=== PATIENT | female | born 1985 | race Caucasian/White ===

== ENCOUNTER 2016-12-09 13:39 | Emergency (ER) | payer SELFPAY ==
[~2016-12-09] VITALS: Wt 8.0 kg
--- NOTE | 2016-12-09 15:50 | RADRPT ---
PROCEDURE: XR Knees. CLINICAL INDICATION: Trauma. Bilateral knee pain. TECHNIQUE: Total of six views. Frontal, oblique, and lateral views of both knees. COMPARISON: No prior study is available for comparison. FINDINGS: There is no fracture or dislocation. The soft tissues are normal. Articular surfaces are intact. There is no lytic or blastic lesion. There is no radiopaque foreign body. IMPRESSION: 1. Unremarkable images of both knees. RPTAT: QQ .Chandan Han MD, MD Date Time Electronically viewed and signed by .Chandan Han MD, MD on 12/09/2016 15:49 .R/
[2016-12-09] MEDS ORDERED: NAPR-260 PO (15:56)
--- NOTE | 2016-12-09 16:13 | ERD ---
ER Documentation Chief Complaint Date/Time DATE: 12/09/16 TIME: 16:09 Chief Complaint BILATERAL KNEE X 5 DAYS HPI Patient is a 31-year-old female who presents to the ED with bilateral knee pain for 5 days after sustaining an injury. She states that she was running and fell into a hole, she did not land on her knees but there is a lot of pressure applied to her bilateral knees. She states that she has pain on the anterior and lateral aspects of her knees. Denies pain above or below her knees. Denies pain in her ankles. She states she is able to walk but it hurts when she bends her knees. Denies hip pain. Denies fever or chills. No other complaints. ROS All systems reviewed and are negative except as per history of present illness. Medications Home Meds Active Scripts Naproxen* (Naprosyn*) 500 Mg Tablet, 500 MG PO BID Y for PAIN AND/OR INFLAMMATION, #30 TAB Prov:DEREJE GONZALEZ PA-C 12/09/16 Allergies Allergies: Coded Allergies: No Known Drug Allergy (Verified Allergy, Unknown, 09/27/10) PMhx/Soc History of Surgery: No Anesthesia Reaction: No Hx Neurological Disorder: No Hx Respiratory Disorders: No Hx Cardiac Disorders: No Hx Psychiatric Problems: No Hx Miscellaneous Medical Probl: No Hx Alcohol Use: No Hx Substance Use: No Hx Tobacco Use: No Physical Exam Vitals Vital Signs Date Time Temp Pulse Resp B/P Pulse Ox O2 Delivery O2 Flow Rate FiO2 12/09/16 13:44 98.6 69 18 141/71 99 Physical Exam GENERAL: Well-developed, well-nourished female. Appears in no acute distress. LUNG: Clear to auscultation bilaterally. No rhonchi, wheezing, rales or coarse breath sounds. HEART: Regular rate and rhythm. No murmurs, rubs or gallops. Extremities: Equal pulses bilaterally. No peripheral clubbing, cyanosis or edema. No unilateral leg swelling. Nontender to bilateral knees. No swelling or ecchymosis, no step-offs or deformities. No open wounds or laceration. Range of motion intact. Negative Lockman test. Positive Laura's on the left. No pain above or below knee. NEUROLOGIC: Alert and oriented. Moving all four extremities. 5/5 strength in all extremities. Normal speech. Steady gait. SKIN: Normal color. Warm and dry. No rashes or lesions. Capillary refill < 2 seconds Procedures/MDM ER COURSE: I kept the patient and/or family informed of laboratory and diagnostic imaging results throughout the emergency room course. IMAGING STUDIES [place] [id number] Radiology Main Line: [phone] DIAGNOSTIC IMAGING REPORT Patient: DIONTE MCCLOUD : 1985 Age: 31 Sex: F MR #: [id number] DOS: 12/09/16 1509 Ordering MD: DEREJE GONZALEZ PA-C Location: [facility] Room/Bed: PROCEDURE: XR Knees. CLINICAL INDICATION: Trauma. Bilateral knee pain. TECHNIQUE: Total of six views. Frontal, oblique, and lateral views of both knees. COMPARISON: No prior study is available for comparison. FINDINGS: There is no fracture or dislocation. The soft tissues are normal. Articular surfaces are intact. There is no lytic or blastic lesion. There is no radiopaque foreign body. IMPRESSION: 1. Unremarkable images of both knees. RPTAT: QQ .Chandan Han MD, MD Date Time Electronically viewed and signed by .Chandan Han MD, on 12/09/2016 15:49 .R/ CC: DEREJE GONZALEZ PA-C MEDICAL DECISION MAKING: This is a 31-year-old female who presents with bilateral knee pain 5 days after sustaining an injury. Vital signs were reviewed. Patient is afebrile. Patient is not hypoxic. Patient is not toxic or ill-appearing. Patient has knee pain of unknown etiology. X-rays read by radiologist is unremarkable. Low suspicion for dislocation, fracture, septic joint, compartment syndrome, osteomyelitis, avascular necrosis, DVT, Achilles tendon rupture, cellulitis. At this time, unable to rule out any tendon and ligament injuries. DISCHARGE: At this time, patient is stable for discharge and outpatient management with no new complaints during the ER course. Patient was sent home with [facility] and copy of x-ray reports. A note for work was also given.. I advised patient to follow-up with orthopedics for further imaging studies. Patient will be discharged home with instructions to recheck for new or worsening symptoms such as fever, nausea, weakness, LOC and to follow up with primary care in the next 1 -2 days. Patient was advised to return to the ER for any new or worsening symptoms. Plan was discussed and patient and/or family understands and agrees. Home instructions were given. Departure Diagnosis: Primary Impression: Knee pain Laterality: bilateral Chronicity: acute Qualified Code: M25.561 - Acute pain of both knees Condition: Stable Patient Instructions: Knee Pain, Uncertain Cause Additional Instructions: Call your primary care doctor TOMORROW for an appointment during the next 1-2 days.See the doctor sooner or return here if your condition worsens before your appointment time. DEREJE GONZALEZ PA-C Dec 09, 2016 16:13
== END 2016-12-09 16:15 | disposition home or self-care (01) ==
LOC: FTE 13:39
DX: S89.91XA Unspecified injury of right lower leg, initial encounter (principal); S89.92XA Unspecified injury of left lower leg, initial encounter; W18.39XA Other fall on same level, initial encounter

== ENCOUNTER 2017-04-28 09:20 | Emergency (ER) | payer SELFPAY ==
[~2017-04-28] VITALS: Ht 162.6 cm; Wt 82.0 kg
[~2017-04-28 09:20] MED LIST: NAPR-260 PO
[2017-04-28 09:23] VITALS: Ht 162.6 cm; Wt 82.0 kg
[2017-04-28 10:08] LABS: BASOPHILS % 0.4 % (0.0-2.0); EOSINOPHILS # 0.1 10^3/ul (0.0-0.5); EOSINOPHILS % 0.8 % (0.0-7.0); HEMOGLOBIN 13.1 g/dl (12.0-16.0); LYMPHOCYTES # 1.9 10^3/ul (0.8-2.9); LYMPHOCYTES % 25.9 % (15.0-51.0); MEAN CORPUSCULAR HEMOGLOBIN 28.9 pg (29.0-33.0); MEAN CORPUSCULAR HGB CONC 32.8 g/dl (32.0-37.0); MEAN CORPUSCULAR VOLUME 88.3 fl (82.0-101.0); MEAN PLATELET VOLUME 11.7 fl (7.4-10.4); MONOCYTE # 0.6 10^3/ul (0.3-0.9); MONOCYTES % 8.7 % (0.0-11.0); NEUTROPHILS % 63.9 % (39.0-77.0); PLATELET COUNT 177 10^3/UL (140-415); RED BLOOD COUNT 4.53 10^6/ul (4.20-5.40); RED CELL DISTRIBUTION WIDTH 12.3 % (11.5-14.5); WHITE BLOOD COUNT 7.2 10^3/ul (4.8-10.8)
[2017-04-28 10:11] LABS: ADD UMIC YES; UR ASCORBIC ACID NEGATIVE (NEGATIVE); UR BILIRUBIN (Dip) NEGATIVE (NEGATIVE); UR BLOOD (Dip) 1+ mg/dL (NEGATIVE); UR CLARITY CLEAR (CLEAR); UR COLOR STRAW (YELLOW); UR GLUCOSE (Dip) NEGATIVE (NEGATIVE); UR KETONES (Dip) NEGATIVE (NEGATIVE); UR LEUKOCYTE ESTERASE (Dip) NEGATIVE Leu/ul (NEGATIVE); UR NITRITE (Dip) NEGATIVE (NEGATIVE); UR RBC 7 /HPF (0-5); UR SPECIFIC GRAVITY (Dip) 1.004 (1.003-1.030); UR TOTAL PROTEIN (Dip) NEGATIVE (NEGATIVE); UR UROBILINOGEN (Dip) NEGATIVE (NEGATIVE)
--- NOTE | 2017-04-28 11:11 | RADRPT ---
PROCEDURE: US OB. CLINICAL INDICATION: Vaginal bleeding TECHNIQUE: Transabdominal and transvaginal views of the pelvis are available for review. COMPARISON: No prior studies are available for comparison. FINDINGS: There is a single intrauterine gestation with the crown-rump length measuring 0.3 cm and the gestati onal sac measuring 1.7 cm, corresponding to a gestational age of 6 weeks and 1 day. The heart tones could not be measured at this time. The ovaries are normal in size and echogenicity. Normal Doppler flow is identified in both ovaries. The right ovary measures 2.5 x 1.3 x 1.6 cm. The left ovary measures 3.4 x 2.4 x 2.4 cm. There is a hemorrhagic cyst in the left ovary. There is no free fluid. RPTAT: AA IMPRESSION: Single intrauterine with an estimated gestational age of 6 weeks and 1 day, based on ultra sound measurements. LISA based on ultrasound measurements is 12/21/2017. heart thickening is seen, however unable to measure the heart rate. Close follow-up is recommended. .Alex Chavis MD, MD Date Time Electronically viewed and signed by .Alex Chavis MD, on 04/28/2017 11:11 .S/
--- NOTE | 2017-04-28 11:31 | ERD ---
ER Documentation Chief Complaint Date/Time DATE: 04/28/17 TIME: 11:29 Chief Complaint vag bleed x 1 day , 6 weesk preg , lmp 03/15/17 HPI 32-year-old female who is with 2 miscarriages comes in approximately 6 weeks with last menstrual period on March 15 with vaginal spotting for the last 2 days. She reports very slight amount of pink vaginal spotting that occurred once yesterday morning as well as today. She has not had any bleeding furthermore, or pelvic pain. She has not had any fevers, chills, dizziness. ROS All systems reviewed and are negative except as per history of present illness. Medications Home Meds Active Scripts Naproxen* (Naprosyn*) 500 Mg Tablet, 500 MG PO BID Y for PAIN AND/OR INFLAMMATION, #30 TAB Prov:DEREJE GONZALEZ PA-C 12/09/16 Allergies Allergies: Coded Allergies: No Known Drug Allergy (Verified Allergy, Unknown, 09/27/10) PMhx/Soc History of Surgery: No Anesthesia Reaction: No Hx Neurological Disorder: No Hx Respiratory Disorders: No Hx Cardiac Disorders: No Hx Psychiatric Problems: No Hx Miscellaneous Medical Probl: No Hx Alcohol Use: No Hx Substance Use: No Hx Tobacco Use: No Physical Exam Vitals Vital Signs Date Time Temp Pulse Resp B/P Pulse Ox O2 Delivery O2 Flow Rate FiO2 04/28/17 09:23 97.8 81 18 131/55 100 Physical Exam General: Well-developed, well-nourished. The patient appears in no acute distress. HEENT: Head is normocephalic, atraumatic. No scleral icterus. Neck: Supple. Nontender. Lungs: Clear to auscultation. Normal air movement. Heart: Regular rate and rhythm. S1 and S2 are normal. No murmurs, gallops, or rubs. Abdomen: Soft, nontender, nondistended. Bowel sounds are normoactive. Extremities: No clubbing or cyanosis. Normal pulses. Moving extremities x 4. No weakness. Neurologic: Alert and oriented 3. No focal deficits. Skin: Normal turgor. No rash or lesions. Result Diagram: 04/28/17 0953 Results 24 hrs Laboratory Tests Test 04/28/17 09:45 04/28/17 09:53 Urine Color STRAW Urine Clarity CLEAR Urine pH 7.0 Urine Specific [place] 1.004 Urine Ketones NEGATIVEmg/dL Urine Nitrite NEGATIVEmg/dL Urine Bilirubin NEGATIVEmg/dL Urine Urobilinogen NEGATIVEmg/dL Urine Leukocyte Esterase NEGATIVELeu/ul Urine Microscopic RBC 7/HPF Urine Microscopic WBC 4/HPF Urine Hemoglobin 1+mg/dL Urine Glucose NEGATIVEmg/dL Urine Total Protein NEGATIVEmg/dl White Blood Count 7.210^3/ul Red Blood Count 4.5310^6/ul Hemoglobin 13.1g/dl Hematocrit 40.0% Mean Corpuscular Volume 88.3fl Mean Corpuscular Hemoglobin 28.9pg Mean Corpuscular Hemoglobin Concent 32.8g/dl Red Cell Distribution Width 12.3% Platelet Count 79009^3/UL Mean Platelet Volume 11.7fl Neutrophils % 63.9% Lymphocytes % 25.9% Monocytes % 8.7% Eosinophils % 0.8% Basophils % 0.4% Nucleated Red Blood Cells % 0.0/100WBC Neutrophils # (Manual) 510^3/ul Lymphocytes # 1.910^3/ul Monocytes # 0.610^3/ul Eosinophils # 0.110^3/ul Basophils # 0.010^3/ul Nucleated Red Blood Cells # 0.010^3/ul Beta HCG, Quantitative 65188.0mIU/ml Procedures/MDM 32-year-old female presents with a single intrauterine at 6 weeks and 1 day, there is a left hemorrhagic cyst as well. There is thickening of the heart therefore there was no visualization of heart tones at this time. This is her first ultrasound in this and I have explained to the patient that although there are no heart tones seen today that she needs to have follow-up with her [facility] next week for repeat ultrasound. Hemorrhagic cyst may be the cause of her bleeding however she does not have any pain. Patient at this time will be given diagnosis of presumed threatened , without evidence of ectopic , PID, cervicitis or adnexal masses. Patient's type and Rh is O+, there is no indication for RhoGam. Departure Diagnosis: Primary Impression: Vaginal bleeding in patient at less than 20 weeks ges... Condition: Good Patient Instructions: Bleeding During Early Referrals: TIAGO MURPHY MD (PCP) Additional Instructions: Patient was advised to follow-up with their OB in 3-4 days for a recheck examination. If they were to develop any worsening symptoms sooner, including heavy vaginal bleeding or pelvic pain, they are to return to the ER for further evaluation. KATRINA ESCOBEDO PA-C Apr 28, 2017 11:28
== END 2017-04-28 11:33 | disposition home or self-care (01) ==
LOC: FTE 09:20
DX: O20.9 Hemorrhage in early pregnancy, unspecified (principal); Z3A.01 Less than 8 weeks gestation of pregnancy
CPT/HCPCS: 36415; 76801; 76817; 81001; 84702; 85025; 86900; 86901

== ENCOUNTER 2018-03-06 14:07 | Day surgery (SDC) | END 2018-03-06 19:05 | disposition home or self-care (01) ==

== ENCOUNTER 2018-08-10 22:33 | Inpatient (IN) | END 2018-08-12 08:39 | disposition home or self-care (01) | DRG 819 ==

== ENCOUNTER 2018-08-14 13:03 | Outpatient (CLI) | END 2018-08-14 14:40 | disposition home or self-care (01) ==

== ENCOUNTER 2018-08-23 21:10 | Inpatient (IN) | END 2018-08-25 19:05 | disposition home or self-care (01) | DRG 807 ==